=== PATIENT | male | born 1945 | race Caucasian/White ===

== ENCOUNTER 2024-11-06 09:51 | Emergency (ER) | payer OTHER ==
[~2024-11-06] VITALS: Ht 177.8 cm; Wt 72.1 kg
[2024-11-06 12:10] VITALS: BP 123/67
== END 2024-11-06 12:10 | disposition home or self-care (01) ==
LOC: ED 09:51
DX: M48.56XA Collapsed vertebra, not elsewhere classified, lumbar region, initial encounter for fracture (principal)
CPT/HCPCS: 72131; 99283-25